=== PATIENT | female | born 2005 | race Caucasian/White ===

== ENCOUNTER 2025-01-26 14:03 | Outpatient (CLI) | payer MEDICAID, SELFPAY ==
--- NOTE | ~2025-01-26 | XR_ITS ---
EXAM: XR lumbar spine 2-3V DATE: 01/26/2025 14:40 HISTORY: Chronic LBP w/Sciatic down LT LE . COMPARISON: None available. FINDINGS: 5 nonrib-bearing lumbar-type vertebral bodies. 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 The sacrum is not completely included in the field-of -view. 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 Pe dicles intact. Normal vertebral body alignment. Vertebral body heights preserved. Mild disc space mahendra rowing at L4-5. Moderate disc space narrowing at L5-S1. Normal facets and posterior elements. No frac ture or dislocation. IMPRESSION: Transitional anatomy. Moderate degenerative disc disease at L5-S1. MRI of the lumbar spine would be helpful for further nydia luation, given history of neurologic symptoms. Consider complete radiographs of the spine if intervention is planned to ensure accurate level number ing. Reviewed, dictated and finalized at location K. IMPRESSION: Transitional anatomy. Moderate degenerative disc disease at L5-S1. MRI of the lumbar spine would be h elpful for further evaluation, given history of neurologic symptoms. Consider complete radiographs of the spine if intervention is planned to ensure accurate level numbering.
--- NOTE | ~2025-01-26 | XR_ITS ---
CHEST RADIOGRAPH, PA AND LATERAL CLINICAL HISTORY: Heart Palpitations since June . COMPARISON: None available TECHNIQUE: PA and lateral views of the chest. FINDINGS The cardiomediastinal silhouette is unremarkable. The lungs are clear. Visualized osseous structures and soft tissues are unremarkable. IMPRESSION: No focal infiltrate or effusion. Reviewed, dictated and finalized at location A.
[2025-01-26 14:37] LABS: Hematocrit 37.3 % (35.0-49.0); Hemoglobin 11.2 g/dL (12.0-15.0); Mean Corpuscular Hemoglobin 22.8 pg (27.0-31.0); Mean Corpuscular Volume 75.8 fL (78.0-102.0); Mean Platelet Volume 10.8 fl (9.2-11.8); Platelet Count Result 305 K/mm3 (150-420); Red Blood Count 4.92 M/mm3 (4.20-5.40); White Blood Count 8.7 K/mm3 (4.8-10.8)
[2025-01-26 14:45] LABS: Add Urine Microscopic? YES; Appearance Urine Clear (Clear); Bilirubin Urine Negative (Negative); Blood Urine Negative (Negative); Color Urine Light Yellow (Yellow); Glucose Urine UA Negative (Negative); Ketones Urine Negative (Negative); Leukocyte Esterase Ur Trace (Negative); Nitrate Urine Negative (Negative); Protein Urine Negative (Negative); Specific Grav Ur 1.015 (1.010-1.020); Urobilinogen Urine 0.2 mg/dL (0.2-1.0); pH Urine 6.5 (5.0-8.0)
[2025-01-26 14:55] LABS: Bacteria Urine Trace /hpf; RBC Urine None seen /hpf (0-2); Squamous Epithelial Cell Urine Few /hpf (Few); WBC Urine None seen /hpf (0-3)
[2025-01-26 15:02] LABS: Alanine Aminotransferase 14 U/L (6-35); Albumin Level 4.6 g/dL (3.5-5.1); Alkaline Phosphatase 44 U/L (38-126); Anion Gap 7 mmol/L (4-12); Aspartate Amino Transferase 19 U/L (14-36); Bilirubin,Total 0.4 mg/dL (0.2-1.3); Blood Urea Nitrogen 6 mg/dL (7-17); CRP < 0.5 mg/dL (<1.0); Calcium 9.4 mg/dL (8.4-10.2); Carbon Dioxide 26 mmol/L (22-30); Chloride 107 mmol/L (98-107); Estimated Glomerular Filt Rate > 60; Glucose 60 mg/dL (65-110); Iron 30 ug/dL (37-170); Osmolality Calculated 285 mOsm/kg (285-295); Potassium 3.7 mmol/L (3.4-5.0); Sodium 140 mmol/L (137-145); Total Protein 7.6 g/dL (6.3-8.2)
[2025-01-26 15:08] LABS: Percent Iron Saturation 7 % (20-50)
[2025-01-26 15:15] LABS: Free T3 3.61 pg/mL (2.18-3.98)
[2025-01-26 15:17] LABS: Free T4 Free Thyroxine 1.04 ng/dL (0.78-2.19)
[2025-01-26 15:34] LABS: Ferritin 4.66 ng/mL (6.24-137)
[2025-01-26 16:29] LABS: Partial Thromboplastin Time 27.6 Sec (23.9-30.70); Prothrombin Time 10.5 Seconds (9.64-11.0)
[2025-01-28 06:58] LABS: Tissue Transglutaminase IgA Ab <1.0 U/mL; Tissue Transglutaminase IgG Ab <1.0 U/mL
[2025-01-29 07:24] LABS: Gliadin Gluten IgA <1.0 U/mL
[2025-01-29 15:03] LABS: Methylmalonic Acid 106 nmol/L (55-335)
[2025-01-30 22:19] LABS: S cerevisiae Ab (IgA) 3.7 U (<=20.0); S cerevisiae Ab (IgG) 4.9 U (<=20.0)
[2025-01-31 17:39] LABS: Myeloperoxidase Ab <1.0 AI (<1.0); Proteinase-3 Ab <1.0 AI (<1.0)
[2025-01-31 20:59] LABS: ANCA Screen Negative (Negative)
== END 2025-01-26 14:04 | disposition home or self-care (01) ==
LOC: CHSLAB 14:09
PROVIDERS: PCP Internal Medicine; Visit Provider Internal Medicine
DX: K52.9 Noninfective gastroenteritis and colitis, unspecified (principal); M54.50 Low back pain, unspecified; R63.4 Abnormal weight loss; D64.9 Anemia, unspecified; N92.0 Excessive and frequent menstruation with regular cycle; M51.379 Other intervertebral disc degeneration, lumbosacral region without mention of lumbar back pain or lower extremity pain
CPT/HCPCS: 36415; 71046; 72100; 80053; 81001; 82728; 83540; 83550; 83921; 84439; 84443; 84481; 85027; 85610; 85730; 86036; 86140; 86364; 86671

== ENCOUNTER 2025-01-27 11:58 | Outpatient (CLI) | payer MEDICAID, SELFPAY ==
[2025-01-27 13:32] LABS: Toxigenic C. Diff NEGATIVE (NEGATIVE)
== END 2025-01-27 11:59 | disposition home or self-care (01) ==
LOC: CHSLAB 12:00
PROVIDERS: PCP Internal Medicine; Visit Provider Internal Medicine
DX: R19.7 Diarrhea, unspecified (principal); M54.50 Low back pain, unspecified; D64.9 Anemia, unspecified; R63.4 Abnormal weight loss; N92.0 Excessive and frequent menstruation with regular cycle
CPT/HCPCS: 87045; 87101; 87177; 87209; 87427; 87449; 87493

== ENCOUNTER 2025-02-07 09:51 | Outpatient (CLI) | payer MEDICAID, SELFPAY ==
--- NOTE | ~2025-02-07 | MR_ITS ---
MRI of the lumbar spine Clinical History: Back pain Technique: Axial T2-weighted images, and sagittal T1-weighted, T2-weighted, and T2 fat-sat images wer e acquired. Findings: There is no fracture or subluxation of the lumbar spine. Vertebral bodies maintain normal h eight and alignment. No bone marrow signal abnormality seen. No disc bulge or herniation seen at any lumbar level. Intervertebral discs maintain normal signal and position. No spinal canal stenosis or neural foraminal narrowing seen at any lumbar level. No epidur al mass or collection. Paravertebral soft tissues are unremarkable. Impression: Unremarkable exam. Reviewed, dictated and finalized at location M. Impression: Unremarkable exam.
== END 2025-02-07 09:52 | disposition home or self-care (01) ==
PROVIDERS: PCP Internal Medicine; Visit Provider Internal Medicine
DX: M54.50 Low back pain, unspecified (principal)
CPT/HCPCS: 72148